=== PATIENT | male | born 1990 | race Caucasian/White ===

== ENCOUNTER 2017-06-06 09:38 | Emergency (ER) | payer SELFPAY | END 2017-06-06 11:46 | disposition home or self-care (01) | LOC: D.ER 09:38 | DX: S01.81XA Laceration without foreign body of other part of head, initial encounter (principal); Y04.2XXA Assault by strike against or bumped into by another person, initial encounter; Y93.89 Activity, other specified; Y92.89 Other specified places as the place of occurrence of the external cause; F17.200 Nicotine dependence, unspecified, uncomplicated ==

== ENCOUNTER 2018-01-09 04:55 | Emergency (ER) | payer SELFPAY | END 2018-01-09 06:05 | disposition home or self-care (01) | LOC: D.ER 04:55 | DX: S99.922A Unspecified injury of left foot, initial encounter (principal); X58.XXXA Exposure to other specified factors, initial encounter; Y93.89 Activity, other specified; Y92.019 Unspecified place in single-family (private) house as the place of occurrence of the external cause; F17.200 Nicotine dependence, unspecified, uncomplicated ==

== ENCOUNTER 2018-10-13 11:31 | Emergency (ER) | payer SELFPAY | END 2018-10-13 15:10 | disposition home or self-care (01) | LOC: D.ER 11:31 | DX: S01.112A Laceration without foreign body of left eyelid and periocular area, initial encounter (principal); W18.09XA Striking against other object with subsequent fall, initial encounter; Y93.89 Activity, other specified; Y92.019 Unspecified place in single-family (private) house as the place of occurrence of the external cause; F17.200 Nicotine dependence, unspecified, uncomplicated ==

== ENCOUNTER 2019-01-01 01:39 | Emergency (ER) | payer SELFPAY ==
[~2019-01-01] VITALS: Ht 170.2 cm; Wt 78.2 kg
[~2019-01-01 01:39] MED LIST: ACETAMINOPHEN500 M1 PO; CYCLOBENZAPRINE10 MG PO; IBUPROFEN800 MG PO
[2019-01-01 01:40] VITALS: Ht 170.2 cm; Wt 78.2 kg
[2019-01-01] MEDS ORDERED: TORADOL10 MG PO (02:20)
[2019-01-01 03:15] VITALS: BP 125/74
== END 2019-01-01 03:16 | disposition home or self-care (01) ==
LOC: D.ER 01:39
DX: S99.921A Unspecified injury of right foot, initial encounter (principal); X58.XXXA Exposure to other specified factors, initial encounter; Y93.89 Activity, other specified; Y92.89 Other specified places as the place of occurrence of the external cause

== ENCOUNTER 2019-02-03 23:56 | Emergency (ER) | payer SELFPAY ==
[~2019-02-03] VITALS: Ht 170.2 cm; Wt 77.6 kg
[~2019-02-03 23:56] MED LIST changes: +TORADOL10 MG PO
[2019-02-04 00:04] VITALS: Ht 170.2 cm; Wt 77.6 kg
[2019-02-04] MEDS ORDERED: TYLENOL #4 W/CO1 TAB PO (03:39)
[2019-02-04 04:02] VITALS: BP 113/65
== END 2019-02-04 04:07 | disposition home or self-care (01) ==
LOC: D.ER 23:56
DX: M25.562 Pain in left knee (principal)

== ENCOUNTER 2019-06-07 13:30 | Emergency (ER) | payer SELFPAY ==
[~2019-06-07] VITALS: Ht 170.2 cm; Wt 76.8 kg
[~2019-06-07 13:30] MED LIST changes: +TYLENOL #4 W/CO1 TAB PO
[2019-06-07 13:40] VITALS: BP 130/93; Ht 170.2 cm; Wt 76.8 kg
== END 2019-06-07 14:23 | disposition left against medical advice (07) ==
LOC: D.ER 13:30
DX: M25.562 Pain in left knee (principal)